=== PATIENT | male | born 1975 | race Caucasian/White ===

== ENCOUNTER 2023-02-20 08:32 | Day surgery (SDC) | payer BC ==
[2023-02-17 12:19] VITALS: BMI 30.1
[2023-02-20] MEDS ORDERED: PROPOFOL 20 ML ONE ×2 (10:38)
[2023-02-20] MEDS ORDERED: Lidocaine 1% PF 5 ML VIAL ONE (11:32)
== END 2023-02-20 11:40 | disposition home or self-care (01) ==
LOC: CSHSDC 08:32
PROVIDERS: ATTEND Internal Medicine Gastroenterology
PROC: 0DB68ZX Excision of Stomach, Via Natural or Artificial Opening Endoscopic, Diagnostic (ICD-10-PCS; principal; 2023-02-20)
PROC: 0DJD8ZZ Inspection of Lower Intestinal Tract, Via Natural or Artificial Opening Endoscopic (ICD-10-PCS; principal; 2023-02-20)
DX: Z12.11 Encounter for screening for malignant neoplasm of colon (principal); K22.82 Esophagogastric junction polyp; K64.9 Unspecified hemorrhoids; R10.9 Unspecified abdominal pain; K21.00 Gastro-esophageal reflux disease with esophagitis, without bleeding; Z87.11 Personal history of peptic ulcer disease; N40.0 Benign prostatic hyperplasia without lower urinary tract symptoms; Z98.890 Other specified postprocedural states; K29.50 Unspecified chronic gastritis without bleeding; K25.9 Gastric ulcer, unspecified as acute or chronic, without hemorrhage or perforation; Z79.899 Other long term (current) drug therapy
CPT/HCPCS: 88305; J2704